=== PATIENT | male | born 1995 | race Caucasian/White ===

== ENCOUNTER 2017-01-09 15:14 | Emergency (ER) | payer OTHER ==
[2017-01-09 15:15] VITALS: BMI 20.3
[2017-01-09 15:19] VITALS: BP 113/71; PULSE 86; RESP 19; TEMP 97.9; O2SAT 99
--- NOTE | 2017-01-09 15:22 | ED PDOC ---
Arrival/HPI - General Chief Complaint: Abnormal Skin Integrity Time Seen by Provider: 01/09/17 15:18 Historian: Patient - History of Present Illness Narrative History of Present Illness (Text): 01/09/17 15:18 21yo male present with laceration to his left 4th finger. States he sustained the laceration when he accidentally cut his finger with a slicer while at work minutes [employer]. States he is up to date with his TD booster. Denies weakness, paresthesia, any other complaint. Past Medical History - Provider Review Nursing Documentation Reviewed: Yes - Infectious Disease Hx of Infectious Diseases: None - Psychiatric Hx Substance Use: No - Anesthesia Hx Anesthesia: No Family/Social History - Physician Review Nursing Documentation Reviewed: Yes Family/Social History: Unknown Family HX Smoking Status: Light Smoker < 10 Cigarettes Daily Hx Alcohol Use: No Hx Substance Use: No Allergies/Home Meds Allergies/Adverse Reactions: Allergies No Known Allergies Allergy (Verified 01/09/17 15:15) Review of Systems - Physician Review All systems were reviewed & negative as marked: Yes - Review of Systems Constitutional: Normal Eyes: Normal ENT: Normal Respiratory: Normal Cardiovascular: Normal Gastrointestinal: Normal Genitourinary Male: Normal Musculoskeletal: Normal Skin: Laceration (Right 4th finger) Neurological: Normal Endocrine: Normal Hemo/Lymphatic: Normal Psychiatric: Normal Physical Exam Vital Signs Reviewed: Yes Vital Signs Temp Pulse Resp BP Pulse Ox 01/09/17 15:17 97.9 F 86 19 113/71 99 Temperature: Afebrile Blood Pressure: Normal Pulse: Regular Respiratory Rate: Normal Appearance: Positive for: Well-Appearing, Non-Toxic, Comfortable Pain Distress: None Mental Status: Positive for: Alert and Oriented X 3 - Systems Exam Head: Present: Atraumatic, Normocephalic Pupils: Present: PERRL Extroacular Muscles: Present: EOMI Conjunctiva: Present: Normal Mouth: Present: Moist Mucous Membranes Neck: Present: Normal Range of Motion Respiratory/Chest: Present: Clear to Auscultation, Good Air Exchange. No: Respiratory Distress, Accessory Muscle Use Cardiovascular: Present: Regular Rate and Rhythm, Normal S1, S2. No: Murmurs Abdomen: Present: Normal Bowel Sounds. No: Tenderness, Distention, Peritoneal Signs Back: Present: Normal Inspection Upper Extremity: Present: Normal Inspection. No: Cyanosis, Edema Lower Extremity: Present: Normal Inspection. No: Edema Neurological: Present: GCS=15, CN II-XII Intact, Speech Normal Skin: Present: Warm, Dry, Normal Color, Laceration (2.0cm linear laceration on right volar aspect of 4th mid finger. FOM. NVI. No tendon involvement). No: Rashes Psychiatric: Present: Alert, Oriented x 3, Normal Insight, Normal Concentration Medical Decision Making ED Course and Treatment: 01/09/17 15:39 Pt declined Suture in ED. States he will leave if suture is the only option. Laceration was irrigated with NS. Approximated with Dermabond and steri strip. Placed on Prophylactic abx. Referred to his PMD. TRT ED for any new or worsening symptoms. - Medication Orders Current Medication Orders: Discontinued Medications Acetaminophen (Tylenol 325mg Tab) 650 mg PO STAT STA Stop: 01/09/17 15:23 Last Admin: 01/09/17 15:29 Dose: 650 mg Cephalexin Monohydrate (Keflex) 500 mg PO STAT STA PRN Reason: Protocol Stop: 01/09/17 15:23 Last Admin: 01/09/17 15:29 Dose: 500 mg Disposition/Present on Arrival - Present on Arrival Any Indicators Present on Arrival: No History of DVT/PE: No History of Uncontrolled Diabetes: No Urinary Catheter: No History of Decub. Ulcer: No History Surgical Site Infection Following: None - Disposition Have Diagnosis and Disposition been Completed?: Yes Diagnosis: Finger laceration Disposition: HOME/ ROUTINE Disposition Time: 15:35 Patient Plan: Discharge Condition: STABLE Discharge Instructions (ExitCare): Laceration (ED), Skin Adhesive Care (ED) Additional Instructions: Follow up with your Doctor Keep wound clean and dry Return to ED for redness, discharge, fever Prescriptions: Cephalexin [Keflex] 500 mg PO TID #21 capsule Referrals: [facility] at [facility] [place] [Outside] - Follow up with primary Forms: WORK NOTE
== END 2017-01-09 16:14 | disposition home or self-care (01) ==
LOC: ED 15:14
DX: S61.214A Laceration without foreign body of right ring finger without damage to nail, initial encounter (principal); W29.0XXA Contact with powered kitchen appliance, initial encounter; Y93.89 Activity, other specified; Y92.69 Other specified industrial and construction area as the place of occurrence of the external cause; Y99.8 Other external cause status

== ENCOUNTER 2017-01-12 12:11 | Emergency (ER) | payer OTHER ==
[2017-01-12 12:11] VITALS: BMI 20.3
[2017-01-12 12:31] VITALS: BP 97/65; PULSE 75; RESP 18; TEMP 98.7; O2SAT 100
--- NOTE | 2017-01-12 13:42 | ED PDOC ---
Arrival/HPI - General Chief Complaint: Wound Check Time Seen by Provider: 01/12/17 13:38 Historian: Patient - History of Present Illness Narrative History of Present Illness (Text): 01/12/17 13:00 This 21 yo male presents to this ED for wound recheck. Patient had a laceration repair with Dermabond x 4 days. Denies new complains. Context: Home Past Medical History - Provider Review Nursing Documentation Reviewed: Yes - Infectious Disease Hx of Infectious Diseases: None - Psychiatric Hx Substance Use: No - Anesthesia Hx Anesthesia: No Family/Social History - Physician Review Nursing Documentation Reviewed: Yes Family/Social History: No Known Family HX Smoking Status: Light Smoker < 10 Cigarettes Daily Hx Alcohol Use: No Hx Substance Use: No Allergies/Home Meds Allergies/Adverse Reactions: Allergies No Known Allergies Allergy (Verified 01/12/17 12:28) Review of Systems - Review of Systems Constitutional: Normal. absent: Fatigue, Weight Change, Fevers Eyes: Normal ENT: Normal Respiratory: Normal Cardiovascular: Normal Gastrointestinal: Normal Genitourinary Male: Normal Musculoskeletal: Other ((+) right 4th finger wound check) Skin: Normal Neurological: Normal Endocrine: Normal Hemo/Lymphatic: Normal Psychiatric: Normal Physical Exam Vital Signs Temp Pulse Resp BP Pulse Ox 01/12/17 12:29 98.7 F 75 18 97/65 L 100 Temperature: Afebrile Blood Pressure: Normal Pulse: Regular Respiratory Rate: Normal Appearance: Positive for: Well-Appearing, Non-Toxic, Comfortable Pain Distress: None Mental Status: Positive for: Alert and Oriented X 3 - Systems Exam Head: Present: Atraumatic, Normocephalic Pupils: Present: PERRL Extroacular Muscles: Present: EOMI Conjunctiva: Present: Normal Mouth: Present: Moist Mucous Membranes Neck: Present: Normal Range of Motion Upper Extremity: Present: Normal ROM, NORMAL PULSES, Neurovascularly Intact, Capillary Refill < 2s, Other ((+) healing wound located right 4th finger. No erythema, or draiange. Finger has FROM). No: Cyanosis, Edema, Tenderness, Swelling, Erythema, Temperature Abnormalties Lower Extremity: Present: Normal Inspection, NORMAL PULSES, Capillary Refill < 2 s Neurological: Present: GCS=15, CN II-XII Intact, Speech Normal, Motor Func Grossly Intact, Normal Sensory Function Skin: Present: Warm, Dry, Normal Color. No: Rashes Psychiatric: Present: Alert, Oriented x 3 Medical Decision Making ED Course and Treatment: 01/12/17 13:42 This patient came for wound check after laceration repaired with Dermabond x 4 days. Patient denies new complains. Wound was clean, and dressing applied. Patient was recommended to see his PMD in 3 days for revaluation, and to return to emergency if wound becomes infected, swelling, redness, or discharge Re-evaluation Time: 13:42 Reassessment Condition: Re-examined, Improved Disposition/Present on Arrival - Present on Arrival Any Indicators Present on Arrival: No History of DVT/PE: No History of Uncontrolled Diabetes: No Urinary Catheter: No History of Decub. Ulcer: No History Surgical Site Infection Following: None - Disposition Have Diagnosis and Disposition been Completed?: Yes Diagnosis: Encounter for wound re-check, Change or removal of wound dressing Disposition: HOME/ ROUTINE Disposition Time: 13:43 Patient Plan: Discharge Condition: GOOD Discharge Instructions (ExitCare): Skin Adhesive Care (ED) Additional Instructions: Call private doctor for follow up visit in 3-5 days. Clean wound daily with soap and water. return to emergency if wound becomes painful, swelling, redness or discharge. Finish antibiotic as recommended. Referrals: Rafael Lord MD [Primary Care Provider] - Follow up with primary
== END 2017-01-12 14:21 | disposition home or self-care (01) ==
LOC: ED 12:11
DX: Z48.01 Encounter for change or removal of surgical wound dressing (principal)

== ENCOUNTER 2017-10-21 14:52 | Emergency (ER) | payer OTHER ==
[2017-10-21 14:52] VITALS: BMI 20.3
[2017-10-21 15:03] VITALS: BP 93/66; PULSE 90; RESP 16; TEMP 98.7; O2SAT 98
--- NOTE | 2017-10-21 15:13 | ED PDOC ---
Arrival/HPI - General Chief Complaint: Abnormal Skin Integrity Time Seen by Provider: 10/21/17 15:10 Historian: Patient - History of Present Illness Narrative History of Present Illness (Text): 10/21/17 15:11 21 y/o male, no significant pmh, nkda, c/o lt. forearm brown discoloration which he noticed today. Pt. has no pain, no itching, no fever or chills, no night weat, no dizziness, no change in vision, no other medical or psychological complaints. Past Medical History - Provider Review Nursing Documentation Reviewed: Yes - Infectious Disease Hx of Infectious Diseases: None - Psychiatric Hx Substance Use: Yes - Anesthesia Hx Anesthesia: No Family/Social History - Physician Review Nursing Documentation Reviewed: Yes Family/Social History: Unknown Family HX Smoking Status: Light Smoker < 10 Cigarettes Daily Hx Alcohol Use: No Frequency of alcohol use: Socially Hx Substance Use: Yes Substance used: marijuana Allergies/Home Meds Allergies/Adverse Reactions: Allergies No Known Allergies Allergy (Verified 01/12/17 12:28) Home Medications: Home Meds Medication Instructions Recorded Confirmed No Known Home Med 10/21/17 10/21/17 Review of Systems - Review of Systems Constitutional: absent: Fatigue, Fevers Eyes: absent: Vision Changes ENT: absent: Hearing Changes Respiratory: absent: SOB, Cough Cardiovascular: absent: Chest Pain Gastrointestinal: absent: Abdominal Pain, Nausea, Vomiting Skin: Rash. absent: Pruritis, Skin Lesions, Laceration, Abscess, Ulcer, Cellulitis Neurological: absent: Headache Psychiatric: absent: Anxiety, Depression Physical Exam Vital Signs Reviewed: Yes Vital Signs Temp Pulse Resp BP Pulse Ox 10/21/17 14:59 98.7 F 90 16 93/66 L 98 Temperature: Afebrile Pulse: Regular Respiratory Rate: Normal Appearance: Positive for: Well-Appearing, Non-Toxic, Comfortable Pain Distress: None Mental Status: Positive for: Alert and Oriented X 3 - Systems Exam Head: Present: Atraumatic, Normocephalic Pupils: Present: PERRL Extroacular Muscles: Present: EOMI Conjunctiva: Present: Normal Neck: Present: Normal Range of Motion Respiratory/Chest: Present: Clear to Auscultation, Good Air Exchange. No: Respiratory Distress, Accessory Muscle Use Cardiovascular: Present: Regular Rate and Rhythm, Normal S1, S2. No: Murmurs Abdomen: Present: Normal Bowel Sounds. No: Tenderness, Distention, Peritoneal Signs Neurological: Present: GCS=15, Speech Normal, Motor Func Grossly Intact, Gait Normal, Memory Normal Skin: Present: Warm, Dry, Rashes (Lt. forearm noted to have patchy brown discoloration approx. [id number] and [id number] on the lt. forearm, no streaking, no cellulitis, no ulcers), Normal Color Psychiatric: Present: Alert, Oriented x 3, Normal Insight, Normal Concentration Medical Decision Making ED Course and Treatment: 10/21/17 15:14 -lt. forearm clean with alcohol wipes and all the brown discoloration resolved, this is likely dirt. Pt. has no other medical or psychological complaints, rash and discoloration resolved permanently. -Discharge home with education on follow up with your own pmd within 2 days as needed, return to the Er for any new or worsening signs or symptoms. 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 Disposition/Present on Arrival - Present on Arrival Any Indicators Present on Arrival: No History of DVT/PE: No History of Uncontrolled Diabetes: No Urinary Catheter: No History of Decub. Ulcer: No History Surgical Site Infection Following: None - Disposition Have Diagnosis and Disposition been Completed?: Yes Diagnosis: General medical exam Disposition: HOME/ ROUTINE Disposition Time: 15:15 Patient Plan: Discharge Condition: GOOD Additional Instructions: -Discharge home with education on follow up with your own pmd within 2 days as needed, return to the Er for any new or worsening signs or symptoms. Referrals: at [facility] [place] [Outside] - Follow up with primary Forms: WORK NOTE
== END 2017-10-21 15:16 | disposition home or self-care (01) ==
LOC: ED 14:52
DX: Z00.00 Encounter for general adult medical examination without abnormal findings (principal)